=== PATIENT | male | born 1985 | race African-American/Black ===

== ENCOUNTER 2023-01-31 08:30 | Emergency (ER) | payer OTHER, SELFPAY ==
[2023-01-31] VITALS (8 sets, daily range): BP systolic 129–144; BP diastolic 78–86; PULSE 62–78; RESP 18; TEMP 36.8; O2SAT 99–100; BMI 34.0
[2023-01-31] MEDS: SODIUM CHLORIDE 0.9% 1,000 ML 1000 ML IV (09:15)
[2023-01-31 09:43] LABS: BUN Creatinine Ratio 23.7 (6-22); Blood Urea Nitrogen 18 mg/dL (9-20); Calcium 9.1 mg/dL (8.4-10.2); Carbon Dioxide 27 mmol/L (22-32); Chloride 104 mmol/L (98-107); Estimated Glomerular Filt Rate > 60 mL/min (>60); Glucose 89 mg/dL (70-100); HEMOLYSIS 22 (0-50); Potassium 4.5 mmol/L (3.4-5.1); Sodium 139 mmol/L (137-145)
[2023-01-31 09:44] LABS: Add Manual Diff / Slide Review NO; Basophils Absolute Auto 0 /uL (0-100); Basophils Percent Auto 0.8 % (0-2); Eosinophils Absolute Auto 100 /uL (0-450); Eosinophils Percent Auto 2.2 % (2-4); Hematocrit 39.5 % (41-53); Hemoglobin 13.8 g/dL (13.5-17.5); Lymphocytes Absolute Auto 1500 /uL (1100-4500); Lymphocytes Percent Auto 36.8 % (25-40); Mean Corpuscular HGB Conc 34.8 % (30-36); Mean Corpuscular Hemoglobin 34.7 PG (26-34); Mean Corpuscular Volume 99.7 fL (80-100); Monocytes Absolute Auto 400 /uL (0-900); Monocytes Percent Auto 8.8 % (3-14); Neutrophils Absolute Auto 2100 /uL (1500-7000); Neutrophils Percent Auto 51.4 % (50-75); Platelet Count 328 X10^3/uL (150-400); Red Blood Cell Count 3.96 X10^6/uL (4.5-5.9)
--- NOTE | 2023-01-31 10:31 | ED_ITS ---
HPI - General Adult General Chief complaint: Dizziness Stated complaint: dizzy/headache T/numb fingers & toes Time Seen by Provider: 01/31/23 08:35 Source: patient Mode of arrival: Ambulatory History of Present Illness HPI narrative: Patient is a 37-year-old male who is here for evaluation of numbness and tingling of the fingers on both his hands and the toes on both of his feet. This has been going on for quite some time now. He is never been evaluated for it. He states that this morning he woke up and had headache and some lighth eadedness. He stated that he was working outside yesterday and thought maybe he got somewhat dehydrated. As far as the tingling goes he states that it does seem to get worse when he is in the cold but never completely resolves when his hands and feet are warm. He reports that it is equal on both of his hands and his feet. No other neurologic symptoms. He also felt a little lightheaded this morning. No vision changes. No chest pain or shortness of breath nor abdominal pain or nausea or vomiting. Related Data Allergies Allergy/AdvReac Type Severity Reaction Status Date / Time No Known Drug Allergies Allergy Verified 01/31/23 08:41 Review of Systems Review of Systems ROS Unobtainable: All systems reviewed & are unremarkable except as noted in HPI and below Patient History Social History Smoking Status: Never smoker Smoking Status: Never smoker alcohol intake frequency: other Substance Use Type: does not use Exam Initial Vital Signs Initial Vital Signs: Vital Signs Blood Pressure 144/78 H 01/31/23 08:38 Const General: cooperative, comfortable and No ill appearing HENKS Head: normal to inspection and normocephalic Resp Effort & Inspection: normal respiratory effort Cardio Rate: regular rate Skin General: no rashes or lesions noted Neuro General: patient alert, patient awake and moves all extremities Other: Does report decreased sensation on the volar aspect of both of his hands to include all of his fingers distal fingers. Extrem General: capillary refill normal Course Orders Ordered: ED Orders 01/31/23 09:20 Basic Metabolic Panel Stat Complete Blood Count AUTO DIFF Stat Discontinued Medications Sodium Chloride (Normal Saline 0.9%) 1,000 mls @ 1,000 mls/hr IV BOLUS ONE Stop: 01/31/23 10:03 Last Admin: 01/31/23 09:15 Dose: 1,000 mls/hr Documented By: LIZET Vital Signs Vital signs: Vital Signs - 8 hr 01/31/23 08:41 01/31/23 08:38 01/31/23 08:39 Temperature 98.2 F Pulse Rate 78 78 Respiratory Rate 18 Blood Pressure 144/78 H 144/78 H Pulse Oximetry 100 99 Oxygen Delivery Method Room Air 01/31/23 09:00 01/31/23 09:30 01/31/23 10:00 Temperature Pulse Rate 70 63 62 Respiratory Rate Blood Pressure Pulse Oximetry 100 99 100 Oxygen Delivery Method Medical Decision Making Lab Data 01/31/23 09:20 01/31/23 09:20 Labs: Lab Results 01/31/23 01/31/23 Range/Units 09:20 09:20 WBC 4.0 L (4.5-11.0) X10^3/uL RBC 3.96 L (4.5-5.9) X10^6/uL Hgb 13.8 (13.5-17.5) g/dL Hct 39.5 L (41-53) % MCV 99.7 (80-100) fL MCH 34.7 H (26-34) PG MCHC 34.8 (30-36) % RDW 15.0 H (11.6-14.8) % Plt Count 328 (150-400) X10^3/uL Neut % (Auto) 51.4 (50-75) % Lymph % (Auto) 36.8 (25-40) % [place] % (Auto) 8.8 (3-14) % Eos % (Auto) 2.2 (2-4) % Baso % (Auto) 0.8 (0-2) % Neut # (Auto) 2100 (2252-1375) /uL Lymph # (Auto) 1500 (0583-5227) /uL [place] # (Auto) 400 (0-900) /uL Eos # (Auto) 100 (0-450) /uL Baso # (Auto) 0 (0-100) /uL Sodium 139 (137-145) mmol/L Potassium 4.5 (3.4-5.1) mmol/L Chloride 104 (98-107) mmol/L Carbon Dioxide 27 (22-32) mmol/L BUN 18 (9-20) mg/dL Creatinine 0.76 (0.66-1.25) mg/dL Estimated GFR > 60 (>60) mL/min BUN/Creatinine Ratio 23.7 H (6-22) Glucose 89 (70-100) mg/dL Calcium 9.1 (8.4-10.2) mg/dL MDM Narrative Medical decision making narrative: Patient has had paresthesias on his hands and feet for over 1 year. He is not been evaluated for this. His electrolytes here in the emergency department unremarkable. Blood sugar is unremarkable. Unsure the exact etiology. I did discuss the potential for Raynaud's as he states that it does get somewhat worse when it is cold outside however it does not completely resolve when he is warm. It has not worsened over the past year. I suspect that his headache and dizziness today were degree of dehydration. He felt better after fluids. Had a long discussion with him regarding his presenting symptoms. Advised that when he returns home to [place] that he may contact with the primary care doctor to d iscuss his numbness and tingling as he may need further workup and potentially see a neurologist. He was given return precautions. He expressed understanding and agreement. Discharge Plan Departure Patient Disposition: Home Clinical Impression: Distal paresthesia, Headache Instructions: DI for Numbness/Tingling Activity Restrictions/Additional Instructions: I recommend that you make contact with the primary care doctor to discuss the tingling that you were having an your fingers and toes. This may require more further workup with specialized testing the can not be performed here in the emergency department. Be sure that you are increasing your fluid intake over the next couple days. Return to the emergency department for new symptoms. Referrals: Miscellaneous,[facility] [Primary Care Provider] - Stand Alone Forms: Patient Portal/API
== END 2023-01-31 10:44 | disposition home or self-care (01) ==
PROVIDERS: Emergency Provider Emergency Medicine
DX: R20.2 Paresthesia of skin (principal); R51.9 Headache, unspecified
CPT/HCPCS: 80048; 85025; 96360; 99283; 99284